=== PATIENT | female | born 1965 | race Caucasian/White ===

== ENCOUNTER 2022-03-31 21:07 | Emergency (ER) | payer OTHER, BC ==
[~2022-03-31] VITALS: Ht 172.7 cm; Wt 80.7 kg
== END 2022-03-31 23:00 | disposition home or self-care (01) ==
LOC: ER 21:07
DX: S40.022A Contusion of left upper arm, initial encounter (principal); V89.2XXA Person injured in unspecified motor-vehicle accident, traffic, initial encounter; Z88.2 Allergy status to sulfonamides
CPT/HCPCS: 73060; 96372; 99284-25; J1885